=== PATIENT | female | born 1950 | race Caucasian/White ===

== ENCOUNTER 2023-12-22 12:23 | Emergency (ER) | payer MEDICARE, BC ==
[~2023-12-22] VITALS: Ht 154.9 cm; Wt 53.2 kg
[2023-12-22 12:25] VITALS: TEMP 97.7
[2023-12-22 13:18] LABS: BASOPHILS % (AUTO) 0.8 % (0-1); EOSINOPHILS # (AUTO) 0.1 X10'3 (0-0.9); EOSINOPHILS % (AUTO) 2.2 % (0-6); HEMATOCRIT 37.5 % (35.0-45.0); HEMOGLOBIN 12.4 g/dl (12.0-16.0); LYMPHOCYTES # (AUTO) 1.6 X10'3 (1.1-4.8); LYMPHOCYTES % (AUTO) 24.8 % (21-51); MEAN CORPUSCULAR HEMOGLOBIN 31.6 PG (27.0-31.0); MEAN CORPUSCULAR VOLUME 95.6 FL (78-98); MEAN PLATELET VOLUME 9.6 FL (7.4-10.4); MONOCYTES # (AUTO) 0.6 X10'3 (0-0.9); MONOCYTES % (AUTO) 9.1 % (2-12); NEUTROPHILS % (AUTO) 63.1 % (42-75); PLATELET COUNT 253 X10'3 (140-440); RED BLOOD COUNT 3.93 X10'6 (4.20-5.60); RED CELL DISTRIBUTION WIDTH 12.8 % (11.5-14.5); WHITE BLOOD COUNT 6.3 X10'3 (4.5-11.0)
[2023-12-22 13:27] LABS: ALBUMIN 3.4 G/DL (3.4-5.0); ANION GAP 7 (8-16); BLOOD UREA NITROGEN 14 MG/DL (7-18); BUN/CREATININE RATIO 14.6 (10.0-20.0); CALCIUM 8.8 MG/DL (8.5-10.1); CHLORIDE 108 MMOL/L (99-107); CREATININE 0.96 MG/DL (0.40-0.90); GLUCOSE 103 MG/DL (70-104); POTASSIUM 4.3 MMOL/L (3.5-5.1); SODIUM 142 MMOL/L (135-145); TOTAL CARBON DIOXIDE 26.8 MMOL/L (24-32); eCRCL 41 ML/MIN; eGFR 57 ML/MIN
[2023-12-22 14:00] VITALS: BP 135/90; PULSE 90; RESP 16; O2SAT 98
[2023-12-22] MEDS ORDERED: TRAM50TA2 PO (14:05)
[2023-12-22] MEDS ORDERED: HYDR-3965 PO (14:05)
[2023-12-22] MEDS: ketorolac tromethamine 15mg/ml inj. IV ONE (14:23)
== END 2023-12-22 15:29 | disposition home or self-care (01) ==
LOC: ER 12:24
DX: S42.301D Unspecified fracture of shaft of humerus, right arm, subsequent encounter for fracture with routine healing (principal); S22.31XD Fracture of one rib, right side, subsequent encounter for fracture with routine healing; R07.1 Chest pain on breathing; W19.XXXD Unspecified fall, subsequent encounter
CPT/HCPCS: 29105; 36415; 71046; 73200; 80048; 83605; 85025; 87040; 96372; 99285; J1885; 96374; A4565